=== PATIENT | male | born 1955 | race Caucasian/White ===

== ENCOUNTER → 2017-01-21 | Outpatient (CLI) | payer BC ==
--- NOTE | 2017-01-21 09:23 | RAD ---
Abdomen, 2 views, 01/21/2017: History: Lower abdominal pain, constipation Gas is present in large and small bowel in a nonspecific pattern. There is a moderate amount of stool in the proximal colon. No free air is evident in the abdomen. There is no evidence of organomegaly. No significant abnormal abdominal calcifications are seen. Moderate scattered spurs are present in the spine. IMPRESSION: 1. Increased stool in the right colon. 2. The abdomen is otherwise unremarkable.
== END | disposition home or self-care (01) ==
LOC: DXRADRC 08:54
PROVIDERS: ATTEND Physician Assistant
DX: K59.00 Constipation, unspecified (principal)
CPT/HCPCS: 74020

== ENCOUNTER 2017-03-23 11:03 | Inpatient (IN) | payer BC ==
[~2017-03-23] VITALS: Ht 177.8 cm; Wt 96.3 kg
[2017-03-23 11:54] VITALS: BP 218/97
[2017-03-23] MEDS: guaiFENesin DM 600/30MG 1 TAB TAB.ER.12H PO SCH ×2 (12:18→20:58)
[2017-03-23] MEDS: ACETAMINOPHEN 325 MG TABLET PO PRN ×2 (12:21→20:58)
[2017-03-23] MEDS: NICOTINE 14MG PATCH. TD SCH (12:21)
[2017-03-23] MEDS: IPRATRPIUM/ALBUTEROL 0.5/2.5MG 3 ML NEBU. NEB SCH ×3 (12:45→21:31)
[2017-03-23 12:47] LABS: BASO # 0.1 x10^3/uL (0.0-0.2); BASO % 1 % (0-3); EOS # 0.1 x10^3/uL (0.0-0.7); EOS % 1 % (0-3); HEMATOCRIT 38.2 % (39.0-53.0); HEMOGLOBIN 13.1 g/dL (13.0-17.5); LYMPH # 1.2 x10^3/uL (1.0-4.8); LYMPH % 12 % (24-48); MEAN CORPUSCULAR HEMOGLOBIN 29 pg (25-35); MEAN CORPUSCULAR HGB CONC 34 g/dL (31-37); MEAN CORPUSCULAR VOLUME 84 fL (79-100); MONO # 0.7 x10^3/uL (0.0-1.1); MONO % 7 % (0-9); NEUT # 8.4 x10^3uL (1.8-7.7); NEUT % 80 % (31-73); PLATELET COUNT 146 x10^3/uL (140-400); RED BLOOD COUNT 4.57 x10^6/uL (4.30-5.70); RED CELL DISTRIBUTION WIDTH 14.6 % (11.5-14.5); WHITE BLOOD COUNT 10.5 x10^3/uL (4.0-11.0)
[2017-03-23] MEDS: IV NORMAL SALINE 1,000ML 1,000 ML IV SCH ×3 (12:51→21:00)
[2017-03-23] MEDS ORDERED: IMIQ1CRE17 TP (13:00)
[2017-03-23] MEDS ORDERED: SILD100T PO (13:00)
[2017-03-23] MEDS ORDERED: ALBU18HF IH (13:00)
[2017-03-23] MEDS ORDERED: AZITHROMYCIN 250 MG TABLET. PO SCH (13:00)
[2017-03-23] MEDS ORDERED: HYDR25TA PO (13:00)
[2017-03-23] MEDS ORDERED: CETI10TA16 PO (13:01)
[2017-03-23] MEDS ORDERED: IBUP800T19 PO (13:01)
[2017-03-23] MEDS ORDERED: CRESTOR5 MG PO (13:01)
[2017-03-23 13:04] LABS: ALBUMIN 2.9 g/dL (3.4-5.0); ALBUMIN/GLOBULIN RATIO 0.6 (1.0-1.7); CALCIUM 8.6 mg/dL (8.5-10.1); CREATININE 1.2 mg/dL (0.7-1.3); MAGNESIUM 1.8 mg/dL (1.8-2.4); POTASSIUM 3.9 mmol/L (3.5-5.1); TOTAL BILIRUBIN 0.6 mg/dL (0.2-1.0); TOTAL PROTEIN 7.6 g/dL (6.4-8.2)
[2017-03-23 13:05] VITALS: BP 177/78
[2017-03-23] MEDS ORDERED: ALBUTEROL SULFATE 8GM INHALER. IH PRN (14:15)
[2017-03-23] MEDS: IBUPROFEN 800 MG TABLET. PO PRN ×2 (14:56→23:05)
[2017-03-23] MEDS ORDERED: IV NORMAL SALINE 500ML 500 ML IV ONE (15:00)
[2017-03-23 15:07] VITALS: BP 176/94
[2017-03-23 17:00] VITALS: BP 165/87
--- NOTE | 2017-03-23 18:11 | HP ---
ADMIT DATE: 03/23/2017 REASON FOR ADMISSION: This is a 61-year-old male who was a direct admit from [facility] this morning where he was seeing ____TAZ. He presented to the clinic complaining of fever and myalgia since last 03/18/2017. No chest pain or sputum production, sore throat, nausea, vomiting or diarrhea. Positive for fever up to 103 and progressively struggling to breathe. His fever did break with ibuprofen. 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 PAST MEDICAL HISTORY: Hyperlipidemia, osteoarthritis. PAST SURGICAL HISTORY: Biopsy of the prostate in 1999. PREVIOUS HOSPITALIZATIONS: Denies. FAMILY HISTORY: Mother is alive with hypertension. Father of lung cancer. SOCIAL HABITS: The patient does smoke 10-20 cigarettes a day. 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 Marital Status: He is . He works in construction. MEDICATIONS: Reviewed. He has been out of his Ventolin inhaler. He takes hydroxyzine only when he runs out of GAMEVIL. No longer takes Viagra. He takes Crestor 5 mg at bedtime and been taking ibuprofen 800 mg up to 3 times a day. REVIEW OF SYSTEMS: Positive for myalgias and shortness of breath. OBJECTIVE: VITAL SIGNS: Blood pressure 177/78, temperature taken by me 103, pulse is 120, O2 sat was 94% on room air. HEENT: Face is flushed. Left TM with some bullae on the drum, but no erythema. Right TM is normal. Nose was patent. His throat was clear. Posterior pharynx mildly erythematous, but no exudate. NECK: Supple without adenopathy. LUNGS: Clear to auscultation. He does have a dry cough. CARDIOVASCULAR: Rapid rhythm and rate, but there are few crackles in the right base. ABDOMEN: Soft, nontender has a small abdominal hernia. EXTREMITIES: Without edema. IMAGING: Chest x-ray, which was taken at the clinic shows moderate right middle lobe pneumonia. LABORATORY DATA: Lactic acid was 2.1. Liver function tests were elevated, alkaline phosphatase is also elevated, ___ is elevated. Influenza done at the clinic was negative. Other studies are pending. ASSESSMENT: 1. Right middle lobe pneumonia. 2. Tobacco use disorder. 3. SIRS. 4. Dehydration secondary to prolonged days with fever. 5. Elevated liver function tests, questionable etiology. 6. Recovered alcoholic. PLAN: IV fluids, ibuprofen for fever. IV antibiotics and monitor closely, oxygen if necessary. THONY ATWOOD DO DR: CHAGO/adam JOB#: [id number] / [id number]
[2017-03-23 19:46] VITALS: BP 150/88
[2017-03-23] MEDS: hydrOXYzine HCL 25 MG TABLET PO PRN (20:59)
[2017-03-23] MEDS ORDERED: ATORVASTATIN CALCIUM 20 MG TABLET PO SCH (21:00)
[2017-03-23 23:09] VITALS: BP 169/76
[2017-03-24] VITALS (7 sets, daily range): BP systolic 144–177; BP diastolic 73–89
[2017-03-24] MEDS: ACETAMINOPHEN 325 MG TABLET PO PRN (05:27)
[2017-03-24] MEDS: IPRATRPIUM/ALBUTEROL 0.5/2.5MG 3 ML NEBU. NEB SCH ×3 (05:30→20:33)
[2017-03-24 06:03] LABS: BASO # 0.1 x10^3/uL (0.0-0.2); BASO % 1 % (0-3); EOS # 0.2 x10^3/uL (0.0-0.7); EOS % 1 % (0-3); HEMATOCRIT 38.9 % (39.0-53.0); HEMOGLOBIN 12.9 g/dL (13.0-17.5); LYMPH # 2.1 x10^3/uL (1.0-4.8); LYMPH % 17 % (24-48); MEAN CORPUSCULAR HEMOGLOBIN 29 pg (25-35); MEAN CORPUSCULAR HGB CONC 33 g/dL (31-37); MEAN CORPUSCULAR VOLUME 86 fL (79-100); MONO # 1.4 x10^3/uL (0.0-1.1); MONO % 12 % (0-9); NEUT # 8.2 x10^3uL (1.8-7.7); NEUT % 69 % (31-73); PLATELET COUNT 145 x10^3/uL (140-400); RED BLOOD COUNT 4.55 x10^6/uL (4.30-5.70); RED CELL DISTRIBUTION WIDTH 15.1 % (11.5-14.5); WHITE BLOOD COUNT 11.9 x10^3/uL (4.0-11.0)
[2017-03-24 06:16] LABS: ALBUMIN 2.7 g/dL (3.4-5.0); ALBUMIN/GLOBULIN RATIO 0.6 (1.0-1.7); CALCIUM 8.5 mg/dL (8.5-10.1); CREATININE 1.1 mg/dL (0.7-1.3); GFR 68.5; MAGNESIUM 2.2 mg/dL (1.8-2.4); POTASSIUM 4.1 mmol/L (3.5-5.1); TOTAL BILIRUBIN 0.3 mg/dL (0.2-1.0); TOTAL PROTEIN 7.4 g/dL (6.4-8.2)
[2017-03-24] MEDS: IV NORMAL SALINE 1,000ML 1,000 ML IV SCH ×2 (08:14→20:55)
[2017-03-24] MEDS: NICOTINE 14MG PATCH. TD SCH (08:15)
--- NOTE | 2017-03-24 10:06 | RAD ---
Chest, 2 views, 03/24/2017: History: Pneumonia Comparison is made to yesterday's study. The heart size is normal. There is ongoing dense infiltrate in the right upper lung involving primarily the upper lobe. This obscures the superior aspect of the right hilum. There is a persistent mild linear opacity in the left base. There is an additional tiny nodular opacity projected over the lateral aspect of the left mid lung. No pleural fluid is seen. There is mild spurring in the spine. IMPRESSION: 1. Unchanged dense pulmonary consolidation in the right upper chest again suggesting pneumonia. Underlying neoplasm cannot be excluded. 2. Mild left basilar linear atelectasis or scarring. 3. Possible tiny left mid lung nodule. 4. CT scanning may be useful for further evaluation, if clinically indicated.
[2017-03-24] MEDS: guaiFENesin DM 600/30MG 1 TAB TAB.ER.12H PO SCH ×2 (10:07→20:54)
[2017-03-24] MEDS: CETIRIZINE HCL 10 MG TABLET PO SCH (10:08)
[2017-03-24] MEDS ORDERED: IOHEXOL 300 MG/ML 75 ML VIAL. IV ONE (10:30)
[2017-03-24] MEDS: IBUPROFEN 800 MG TABLET. PO PRN ×2 (10:38→22:01)
[2017-03-24 11:10] LABS: BACTERIA,URINE 0 /HPF (0-FEW); BILIRUBIN,URINE NEG (NEG); CLARITY,URINE HAZY; COLOR,URINE AMBER; GLUCOSE,URINE NEG (NEG); NITRITE,URINE NEG (NEG); SQUAMOUS EPITHELIAL CELL,UR OCC /LPF; UROBILINOGEN,URINE 4 mg/dL (0.2 mg/dL); WBC,URINE 0 /HPF (0-4)
--- NOTE | 2017-03-24 11:26 | RAD ---
Abdominal ultrasound, 03/24/2017: History: Epigastric pain, elevated liver enzymes The gallbladder is within normal limits in size. There is no sonographic evidence of cholelithiasis. The gallbladder wall is at the upper limits of normal in thickness. No bile duct dilatation is evident. The liver is enlarged measuring 21 cm in craniocaudad extent at the level of the right lobe. No hepatic mass is seen. The visualized portions of the pancreas, spleen, aorta and inferior vena cava are unremarkable. There are 2 small subcentimeter cysts in the right kidney. There is a 1.9 cm left renal cyst. The kidneys show no evidence of obstruction. IMPRESSION: 1. Hepatomegaly. 2. Small bilateral renal cysts.
[2017-03-24] MEDS: ENOXAPARIN 40 MG/0.4 ML DISP.SYRIN. SQ SCH (13:08)
--- NOTE | 2017-03-24 13:35 | RAD ---
CT of the chest with contrast, 03/24/2017: History: Cough, pneumonia Multidetector CT imaging was performed following an IV bolus injection of iodinated contrast material. There or extensive airspace opacities in the right upper lobe with underlying air bronchograms. No central bronchial obstructing mass is seen. There is minimal infiltrate centrally in the right middle lobe. There is a small right pleural effusion with mild atelectasis posteriorly in the right lower lobe. A calcified granuloma is present in the right lower lobe. There is mild streaky dependent opacities in the left base suggesting atelectasis/infiltrate. No left-sided pleural fluid is evident. A 9 mm noncalcified pulmonary nodule is present laterally in the left upper lobe. No other definite pulmonary nodules are seen. There is mild calcific plaquing of the thoracic aorta without evidence of aneurysm. The heart is not enlarged. Small mediastinal lymph nodes are seen without definite pathologic enlargement. A calcified lymph node is noted at the right hilum. IMPRESSION: 1. Extensive right upper lobe pulmonary infiltrate compatible with pneumonia. 2. Small right pleural effusion. 3. Minimal left basilar atelectasis/infiltrate. 4. Small noncalcified left upper lobe pulmonary nodule. This could be a primary or secondary neoplasm, or a granuloma. PQRS Compliance Statement: One or more of the following individualized dose reduction techniques were utilized for this examination: 1. Automated exposure control 2. Adjustment of the mA and/or kV according to patient size 3. Use of iterative reconstruction technique
[2017-03-24] MEDS: ALBUTEROL SULFATE 2.5 MG/3 ML NEBU. NEB PRN (15:46)
[2017-03-24] MEDS: hydrOXYzine HCL 25 MG TABLET PO PRN (20:54)
[2017-03-24] MEDS: cloNIDine HCL 0.1 MG TABLET PO PRN (22:00)
--- NOTE | 2017-03-24 23:00 | PN ---
DATE: 03/23/2017 PROBLEMS: 1. Gram positive pneumonia. 2. Sepsis. 3. Tobacco use disorder. 4. Elevated liver function tests. 5. History of IV drug abuse, remote. 6. Recovered alcoholic. 7. Dehydration, resolved. SUBJECTIVE: A 61-year-old male admitted with right upper lobe pneumonia. Gram stain of sputum was positive for gram-positive cocci. He has been on ceftriaxone and Zithromax. He is no worse, but he is definitely not much better. Temperature has come down some and he is maintaining saturations with a couple of liters. OBJECTIVE: VITAL SIGNS: T-max in the last 24 hours was 103, this morning is 100.6, pulse 107, respiratory rate 20-24, blood pressure 164/76 and sat is 96% on 2 liters. GENERAL: Slightly dyspneic with speaking. HEENT: Her eyes are clear. Nose patent. Throat clear. NECK: Supple. LUNGS: With some scattered rhonchi and popping in the right side, clear on the left. CARDIOVASCULAR: Regular rhythm and rate. ABDOMEN: Soft, nontender. EXTREMITIES: Without edema. LABORATORY DATA: CBC: White count slightly more elevated at 11.9. No bands. Urinalysis shows just a small amount of blood. The liver function tests as stated AST, ___ GGT 197, alkaline phosphatase 180. CT of the chest is pending. Abdominal ultrasound shows hepatomegaly. The patient states this is not new. PLAN: Switch to Rocephin, get a hepatitis profile and await the results of the CT of the chest as neoplasm cannot be ruled out. He is doing well on the nicotine patches currently and breathing treatments, IV antibiotics and will go ahead and cover him for DVT prophylaxis as well. THONY ATWOOD DO DR: CHAGO/adam JOB#: [id number] / [id number]
[2017-03-25] MEDS: ALBUTEROL SULFATE 2.5 MG/3 ML NEBU. NEB PRN ×2 (02:27→15:22)
[2017-03-25] MEDS: IV NORMAL SALINE 1,000ML 1,000 ML IV SCH ×3 (04:37→20:43)
[2017-03-25] MEDS: IPRATRPIUM/ALBUTEROL 0.5/2.5MG 3 ML NEBU. NEB SCH ×3 (05:32→20:37)
[2017-03-25 05:45] VITALS: BP 141/81
[2017-03-25 06:45] LABS: BASO # 0.1 x10^3/uL (0.0-0.2); BASO % 1 % (0-3); EOS # 0.3 x10^3/uL (0.0-0.7); EOS % 2 % (0-3); HEMATOCRIT 36.9 % (39.0-53.0); HEMOGLOBIN 12.1 g/dL (13.0-17.5); LYMPH % 15 % (24-48); MEAN CORPUSCULAR HEMOGLOBIN 28 pg (25-35); MEAN CORPUSCULAR HGB CONC 33 g/dL (31-37); MEAN CORPUSCULAR VOLUME 85 fL (79-100); MONO # 1.5 x10^3/uL (0.0-1.1); MONO % 11 % (0-9); NEUT # 9.3 x10^3uL (1.8-7.7); NEUT % 71 % (31-73); PLATELET COUNT 167 x10^3/uL (140-400); RED BLOOD COUNT 4.32 x10^6/uL (4.30-5.70); WHITE BLOOD COUNT 13.1 x10^3/uL (4.0-11.0)
[2017-03-25 06:51] LABS: ALBUMIN 2.6 g/dL (3.4-5.0); ALBUMIN/GLOBULIN RATIO 0.5 (1.0-1.7); CALCIUM 8.8 mg/dL (8.5-10.1); GFR 76.5; MAGNESIUM 1.9 mg/dL (1.8-2.4); POTASSIUM 4.1 mmol/L (3.5-5.1); TOTAL BILIRUBIN 0.5 mg/dL (0.2-1.0); TOTAL PROTEIN 7.5 g/dL (6.4-8.2)
--- NOTE | 2017-03-25 07:31 | ACF ---
Admit Criteria Forms Admit Criteria Forms Admit Criteria Forms PNEUMONIA, COMMUNITY ACQUIRED Clinical Indications for Admission to Inpatient Care (Place 'X' for any and all applicable criteria): Admission to inpatient status for two midnights or more is indicated for ANY ONE of the following (1)(2)(3): [ ]I. Hypoxia [ ]II. Hemodynamic instability [ ]III. Altered mental status that is severe or persistent [ ]IV. Dehydration that is severe or persistent. [ ]V. Bacteremia [ ]. Moderate-risk or high-risk category patients (Pneumonia Severity Index ( PSI) class IV or V, or CURB-65 score of 3 or greater). [ ]VII. Intermediate-risk category patients (e.g., PSI class III or CURB-65 score 2) who do not improve with outpatient and observation care treatment [ ]VIII. Outpatient treatment failure as indicated by 1 or more of the following(9): [ ]a) Failure to respond to antibiotic (eg, resistant organism) [ ]b) Clinically significant adverse effects from medication (eg, vomiting) [ ]c) Complications of pneumonia (eg, empyema, bacteremia) [ ]d) Significant worsening of comorbid cond necessitating inpatient care (eg, chronic heart failure) [X]IX. Appropriate diagnostic testing and treatment unavailable in outpatient or recovery facility (eg, testing or infection control measures unavailable) [ ]X. Respiratory finding (eg. tachypnea) that do not respond to outpatient observation care treatment [ ]XI. Complicated pleural effusions (eg, emphysema, exudative, loculated) [ ]XII. Immunocompromised patients (e.g., AIDS, chronic steroid use) at moderate or high risk based on clinical evaluation. Extended stay beyond goal length of stay may be needed for (20) [ ]a) Unclear diagnosis [ ]b) Pleural disease [ ]c) Severe pneumonia or treatment failure [ ]d) Respiratory failure [ ]e) New onset hyponatremia (serum Na concentration less than 135 mEq/L(mmol/ L) [ ]f) Clinically significant comorbid illness (eg, heart failure, atrial fibrillation with rapid heart rate, alcohol withdrawal, renal insufficiency)(34)(35) [ ]g) Comorbid acute exacerbation of COPD(36) [ ]h) Concomitant diagnosis of malignancy [ ]i) Concomitant altered mental status [ ]j) Culture-identified Gram-negative or antibiotic-resistant organism (eg, Pseudomonas, methicillin-resistant Staphylococcus aureus MRSA)(30) [ ]k) Healthcare-associated pneumonia (36) The original [facility] [employer] content created by [facility] has been revised. The portions of the content which have been revised are identified through the use of italic text, and [facility] has neither reviewed nor approved the modified material. All other unmodified content is copyright [facility]. Please see references footnoted in the original [facility] [employer] edition 2014 BROOKE HORTON Mar 25, 2017 07:31
[2017-03-25] MEDS ORDERED: PIP/TAZO PER PHARMACY MC PRN (07:45)
[2017-03-25] MEDS ORDERED: VANCOMYCIN 2 GM in IV NORMAL SALINE 500ML 500 ML IV ONE (09:00)
[2017-03-25] MEDS: guaiFENesin DM 600/30MG 1 TAB TAB.ER.12H PO SCH ×2 (09:15→20:43)
[2017-03-25] MEDS: VANCOMYCIN PER PHARMACY MC PRN ×2 (09:15→10:54)
[2017-03-25] MEDS: ASCORBIC ACID 500 MG TABLET PO SCH (09:16)
[2017-03-25] MEDS: CETIRIZINE HCL 10 MG TABLET PO SCH (09:19)
[2017-03-25] MEDS: NICOTINE 14MG PATCH. TD SCH (09:19)
[2017-03-25] MEDS: ENOXAPARIN 40 MG/0.4 ML DISP.SYRIN. SQ SCH (09:22)
[2017-03-25] MEDS: methylPREDNISolone SOD SUCC PF 125 MG/2 ML VIAL. IV SCH ×3 (09:23→20:44)
--- NOTE | 2017-03-25 10:14 | RAD ---
Chest, 2 views, 03/25/2017: History: Pneumonia Comparison is made to a study from 03/24/2017. The heart size is normal. There are ongoing extensive right lung infiltrates with dominant involvement of the right upper lobe. These have worsened slightly since 03/23/2017 with increasing infrahilar infiltrate. A small amount of right-sided pleural fluid is now evident. There is minimal unchanged streaky atelectasis/infiltrate in the left base. The patient's known small left upper lobe pulmonary nodule is not clearly defined on the current study. IMPRESSION: Slight worsening of the extensive right lung infiltrates again most compatible with pneumonia, with a small amount of associated right-sided pleural fluid.
[2017-03-25 10:30] VITALS: BP 167/80
[2017-03-25] MEDS: PIPERACILLIN/TAZOBACTAM 3.375 GM in IV NORMAL SALINE 50ML 50 ML IV SCH ×3 (13:29→23:36)
[2017-03-25 15:10] VITALS: BP 172/90
[2017-03-25 17:15] LABS: HCV ANTIBODY >11.0 s/co ratio (0.0-0.9); HEP A IGM ABDY Negative (Negative)
[2017-03-25 19:18] VITALS: BP 178/86
[2017-03-25] MEDS: cloNIDine HCL 0.1 MG TABLET PO PRN (20:43)
[2017-03-25] MEDS: hydrOXYzine HCL 25 MG TABLET PO PRN (20:43)
[2017-03-25] MEDS: VANCOMYCIN 1.5 GM in IV NORMAL SALINE 500ML 500 ML IV SCH (20:44)
[2017-03-25 23:20] VITALS: BP 147/81
--- NOTE | 2017-03-25 23:44 | PN ---
DATE: 03/25/2017 PROBLEMS: 1. Right upper and middle lobe pneumonia. 2. Sepsis secondary to pneumonia. 3. Acute respiratory failure secondary to pneumonia. 4. Tobacco use disorder. 5. Transaminitis, questionable etiology, may be due to pneumonia versus old history of IV drug abuse. 6. Recovered alcoholic. 7. Dehydration, resolved, not doing much better today. It is not that he is worse, but just not better. IV antibiotics have been switched up a little to Zosyn and vancomycin and he is requiring a couple of liters of oxygen, but no increase in his oxygen requirements. He has been up and ambulating a little bit. OBJECTIVE: VITAL SIGNS: Pulse 110, temperature 99.7, blood pressure 167/80, pulse ox 96% on 2 liters. Face still flushed. HEENT: Throat was clear. LUNGS: A little bit of popping heard on the right side with a little bit of rhonchi, left side clear. CARDIOVASCULAR: Regular rhythm and rate. Mildly tachycardic. EXTREMITIES: Without edema. LABORATORY DATA: White blood cell count up slightly to 13.1. Chemistry, he still has transaminitis. Hepatitis profile is pending. Urine had slight amount of blood in it. His strep pneumonia antigen was negative and legionella also negative. PLAN: I added some Solu-Medrol today. Discussed with Dr. Celis. Continuing with Zosyn and vancomycin, and smoking cessation, and we will continue to monitor closely. THONY ATWOOD DO DR: CHAGO/adam JOB#: [id number] / [id number]
[2017-03-26] VITALS (7 sets, daily range): BP systolic 138–185; BP diastolic 69–96
[2017-03-26] MEDS: IPRATRPIUM/ALBUTEROL 0.5/2.5MG 3 ML NEBU. NEB SCH ×3 (03:49→20:35)
[2017-03-26] MEDS: methylPREDNISolone SOD SUCC PF 125 MG/2 ML VIAL. IV SCH ×3 (05:33→20:47)
[2017-03-26] MEDS: PIPERACILLIN/TAZOBACTAM 3.375 GM in IV NORMAL SALINE 50ML 50 ML IV SCH ×4 (05:33→23:09)
[2017-03-26] MEDS: IV NORMAL SALINE 1,000ML 1,000 ML IV SCH ×2 (05:33→12:15)
[2017-03-26 06:19] LABS: BASO % 0 % (0-3); EOS % 0 % (0-3); HEMATOCRIT 32.7 % (39.0-53.0); HEMOGLOBIN 11.1 g/dL (13.0-17.5); LYMPH # 1.2 x10^3/uL (1.0-4.8); LYMPH % 10 % (24-48); MEAN CORPUSCULAR HEMOGLOBIN 29 pg (25-35); MEAN CORPUSCULAR HGB CONC 34 g/dL (31-37); MEAN CORPUSCULAR VOLUME 85 fL (79-100); MONO # 0.8 x10^3/uL (0.0-1.1); MONO % 7 % (0-9); NEUT # 10.2 x10^3uL (1.8-7.7); NEUT % 84 % (31-73); PLATELET COUNT 199 x10^3/uL (140-400); RED BLOOD COUNT 3.87 x10^6/uL (4.30-5.70); RED CELL DISTRIBUTION WIDTH 15.4 % (11.5-14.5); WHITE BLOOD COUNT 12.2 x10^3/uL (4.0-11.0)
[2017-03-26 06:29] LABS: ALBUMIN 2.4 g/dL (3.4-5.0); ALBUMIN/GLOBULIN RATIO 0.5 (1.0-1.7); CALCIUM 8.8 mg/dL (8.5-10.1); GFR 76.5; MAGNESIUM 2.1 mg/dL (1.8-2.4); POTASSIUM 3.7 mmol/L (3.5-5.1); TOTAL BILIRUBIN 0.3 mg/dL (0.2-1.0)
[2017-03-26] MEDS: ENOXAPARIN 40 MG/0.4 ML DISP.SYRIN. SQ SCH (08:13)
[2017-03-26] MEDS: VANCOMYCIN 1.5 GM in IV NORMAL SALINE 500ML 500 ML IV SCH ×2 (08:13→20:47)
[2017-03-26] MEDS: guaiFENesin DM 600/30MG 1 TAB TAB.ER.12H PO SCH ×2 (08:14→20:46)
[2017-03-26] MEDS: NICOTINE 14MG PATCH. TD SCH (08:14)
[2017-03-26] MEDS: ASCORBIC ACID 500 MG TABLET PO SCH (08:14)
[2017-03-26] MEDS: CETIRIZINE HCL 10 MG TABLET PO SCH (08:14)
[2017-03-26] MEDS: ALBUTEROL SULFATE 2.5 MG/3 ML NEBU. NEB PRN (15:22)
--- NOTE | 2017-03-26 15:46 | PDOC ---
SUBJECTIVE: DOING MUCH BETTER TODAY. BREATHING MUCH BETTER. NOT SHORT OF BREATH. STILL COUGHING UP SOME BLOOD TINGED SPUTUM. DOING OK OFF THE CIGARETTES. STILL REQUIRING SOME OXYGEN. OBJECTIVE: Problems: . Right upper and middle lobe pneumonia. 2. Sepsis secondary to pneumonia. 3. Acute respiratory failure secondary to pneumonia. 4. Tobacco use disorder. 5. Transaminitis, questionable etiology, may be due to pneumonia versus old history of IV drug abuse. 6. Recovered alcoholic. 7. Dehydration, resolved 8. POSITIVE HEPATITIS C Vital Signs: Vital Signs Date Time Temp Pulse Resp B/P (MAP) Pulse Ox O2 Delivery O2 Flow Rate FiO2 03/26/17 15:22 97 Nasal Cannula 2.0 03/26/17 15:08 98.1 93 20 178/93 (121) I & O Intake and Output 03/27/17 07:00 Intake Total 360 ml Balance 360 ml Intake Oral 360 ml Labs: Laboratory Tests Test 03/25/17 06:05 03/26/17 05:46 White Blood Count 13.1 x10^3/uL (4.0-11.0) 12.2 x10^3/uL (4.0-11.0) Red Blood Count 4.32 x10^6/uL (4.30-5.70) 3.87 x10^6/uL (4.30-5.70) Hemoglobin 12.1 g/dL (13.0-17.5) 11.1 g/dL (13.0-17.5) Hematocrit 36.9 % (39.0-53.0) 32.7 % (39.0-53.0) Mean Corpuscular Volume 85 fL (79-100) 85 fL (79-100) Mean Corpuscular Hemoglobin 28 pg (25-35) 29 pg (25-35) Mean Corpuscular Hemoglobin Concent 33 g/dL (31-37) 34 g/dL (31-37) Red Cell Distribution Width 15.0 % (11.5-14.5) 15.4 % (11.5-14.5) Platelet Count 167 x10^3/uL (140-400) 199 x10^3/uL (140-400) Neutrophils (%) (Auto) 71 % (31-73) 84 % (31-73) Lymphocytes (%) (Auto) 15 % (24-48) 10 % (24-48) Monocytes (%) (Auto) 11 % (0-9) 7 % (0-9) Eosinophils (%) (Auto) 2 % (0-3) 0 % (0-3) Basophils (%) (Auto) 1 % (0-3) 0 % (0-3) Neutrophils # (Auto) 9.3 x10^3uL (1.8-7.7) 10.2 x10^3uL (1.8-7.7) Lymphocytes # (Auto) 2.0 x10^3/uL (1.0-4.8) 1.2 x10^3/uL (1.0-4.8) Monocytes # (Auto) 1.5 x10^3/uL (0.0-1.1) 0.8 x10^3/uL (0.0-1.1) Eosinophils # (Auto) 0.3 x10^3/uL (0.0-0.7) 0.0 x10^3/uL (0.0-0.7) Basophils # (Auto) 0.1 x10^3/uL (0.0-0.2) 0.0 x10^3/uL (0.0-0.2) Sodium Level 139 mmol/L (136-145) 139 mmol/L (136-145) Potassium Level 4.1 mmol/L (3.5-5.1) 3.7 mmol/L (3.5-5.1) Chloride Level 104 mmol/L (98-107) 106 mmol/L (98-107) Carbon Dioxide Level 27 mmol/L (21-32) 26 mmol/L (21-32) Anion Gap 8 (6-14) 7 (6-14) Blood Urea Nitrogen 10 mg/dL (8-26) 16 mg/dL (8-26) Creatinine 1.0 mg/dL (0.7-1.3) 1.0 mg/dL (0.7-1.3) Estimated GFR (Cockcroft-Gault) 76.5 76.5 BUN/Creatinine Ratio 10 (6-20) 16 (6-20) Glucose Level 121 mg/dL (70-99) 270 mg/dL (70-99) Calcium Level 8.8 mg/dL (8.5-10.1) 8.8 mg/dL (8.5-10.1) Magnesium Level 1.9 mg/dL (1.8-2.4) 2.1 mg/dL (1.8-2.4) Total Bilirubin 0.5 mg/dL (0.2-1.0) 0.3 mg/dL (0.2-1.0) Aspartate Amino Transf (AST/SGOT) 109 U/L (15-37) 83 U/L (15-37) Alanine Aminotransferase (ALT/SGPT) 186 U/L (16-63) 199 U/L (16-63) Alkaline Phosphatase 234 U/L (46-116) 231 U/L (46-116) Total Protein 7.5 g/dL (6.4-8.2) 7.0 g/dL (6.4-8.2) Albumin 2.6 g/dL (3.4-5.0) 2.4 g/dL (3.4-5.0) Albumin/Globulin Ratio 0.5 (1.0-1.7) 0.5 (1.0-1.7) Physical Exam: 24 HOUR TMAX 99.7 FACE FLUSHED, THROAT CLEAR, LUNGS WITH SOME RHONI AND POPPING OVER THE RIGHT LUNG AREA, CVRRR, EXT. WITHOUT EDEMA ASSESSMENT: ABOVE PLAN: DISCUSSED THE FINDINGS OF HEPATITIS C AND HE WILL NEED TO SEE A DATA COMMUNICATIONS TECHNICIAN FOR FURTHER WORK-UP. HE DID IV DRUGS FOR MANY YEARS AND THIS IS THE LIKELY SOURCE OF THE HEPATITIS. CONTINUE ANTIBIOTICS , CUT DOWN THE STEROIDS AND START TO PLAN FOR DISCHARGE. THONY ATWOOD DO Mar 26, 2017 15:46
[2017-03-26] MEDS ORDERED: cloNIDine HCL 0.1 MG TABLET PO ONE (15:50)
[2017-03-26] MEDS: CALCIUM CARBONATE 500 MG TAB.CHEW PO PRN ×2 (15:55→21:35)
[2017-03-26 20:38] LABS: VANC TR 8.8 mcg/mL (10.0-20.0)
[2017-03-26] MEDS: cloNIDine HCL 0.1 MG TABLET PO PRN ×2 (20:46→23:09)
[2017-03-26] MEDS: VANCOMYCIN PER PHARMACY MC PRN (22:02)
[2017-03-26] MEDS: hydrOXYzine HCL 25 MG TABLET PO PRN (23:09)
[2017-03-27] VITALS (8 sets, daily range): BP systolic 155–184; BP diastolic 84–101
[2017-03-27] MEDS: ALBUTEROL SULFATE 2.5 MG/3 ML NEBU. NEB PRN ×2 (02:26→16:20)
[2017-03-27] MEDS: VANCOMYCIN 1.5 GM in IV NORMAL SALINE 500ML 500 ML IV SCH ×4 (04:30→21:46)
[2017-03-27] MEDS: IPRATRPIUM/ALBUTEROL 0.5/2.5MG 3 ML NEBU. NEB SCH ×3 (05:10→19:59)
[2017-03-27] MEDS ORDERED: PNEUMOCOCCAL VAX SCREEN. MC PRN (05:15)
[2017-03-27 06:11] LABS: BASO % 0 % (0-3); EOS % 0 % (0-3); HEMATOCRIT 31.5 % (39.0-53.0); HEMOGLOBIN 10.8 g/dL (13.0-17.5); LYMPH # 1.5 x10^3/uL (1.0-4.8); LYMPH % 10 % (24-48); MEAN CORPUSCULAR HEMOGLOBIN 29 pg (25-35); MEAN CORPUSCULAR HGB CONC 34 g/dL (31-37); MEAN CORPUSCULAR VOLUME 84 fL (79-100); MONO # 1.2 x10^3/uL (0.0-1.1); MONO % 8 % (0-9); NEUT # 12.8 x10^3uL (1.8-7.7); NEUT % 82 % (31-73); PLATELET COUNT 247 x10^3/uL (140-400); RED BLOOD COUNT 3.77 x10^6/uL (4.30-5.70); RED CELL DISTRIBUTION WIDTH 15.6 % (11.5-14.5); WHITE BLOOD COUNT 15.6 x10^3/uL (4.0-11.0)
[2017-03-27 06:15] LABS: ALBUMIN 2.3 g/dL (3.4-5.0); ALBUMIN/GLOBULIN RATIO 0.5 (1.0-1.7); CALCIUM 8.8 mg/dL (8.5-10.1); GFR 76.5; MAGNESIUM 2.2 mg/dL (1.8-2.4); TOTAL BILIRUBIN 0.3 mg/dL (0.2-1.0); TOTAL PROTEIN 6.5 g/dL (6.4-8.2)
[2017-03-27] MEDS: PIPERACILLIN/TAZOBACTAM 3.375 GM in IV NORMAL SALINE 50ML 50 ML IV SCH ×3 (06:23→18:23)
[2017-03-27 07:33] LABS: % BANDS 1 % (0-9); % LYMPHS 9 % (24-48); % MONOS 7 % (0-10); % SEGS 83 % (35-66)
[2017-03-27 07:34] LABS: PLT ESTIMATE ADEQUATE (ADEQUATE)
[2017-03-27 07:35] LABS: POLYCHROMASIA SLIGHT
[2017-03-27 07:36] LABS: OVALOCYTES OCC; TOXIC GRANULATION SLIGHT
[2017-03-27] MEDS: ENOXAPARIN 40 MG/0.4 ML DISP.SYRIN. SQ SCH (08:12)
[2017-03-27] MEDS: ASCORBIC ACID 500 MG TABLET PO SCH (08:13)
[2017-03-27] MEDS: guaiFENesin DM 600/30MG 1 TAB TAB.ER.12H PO SCH ×2 (08:13→21:43)
[2017-03-27] MEDS: methylPREDNISolone SOD SUCC PF 125 MG/2 ML VIAL. IV SCH (08:13)
[2017-03-27] MEDS: CETIRIZINE HCL 10 MG TABLET PO SCH (08:13)
[2017-03-27] MEDS: NICOTINE 14MG PATCH. TD SCH (08:14)
[2017-03-27] MEDS ORDERED: DEXTROSE 50% 25 GM / 50ML DISP.SYRIN. IV PRN (08:15)
[2017-03-27] MEDS: INSULIN ASPART 300 UNITS/3 ML INSULN.PEN SQ SCH ×4 (08:57→21:54)
[2017-03-27] MEDS ORDERED: PNEUMOC CONJ VACC 23-VALENT 0.5 ML VIAL. VAX IM ONE (09:00)
[2017-03-27] MEDS ORDERED: cloNIDine TTS-1 1 PATCH PATCH TD SCH (09:00)
[2017-03-27] MEDS: CALCIUM CARBONATE 500 MG TAB.CHEW PO PRN ×2 (13:15→18:20)
[2017-03-27] MEDS ORDERED: LINE600T PO (13:20)
[2017-03-27] MEDS ORDERED: ALBU8.5H8 INH (13:20)
[2017-03-27] MEDS ORDERED: FLUT1DIS3 IH (13:20)
[2017-03-27] MEDS ORDERED: AMOX1TAB61 PO (13:20)
[2017-03-27] MEDS: cloNIDine HCL 0.1 MG TABLET PO PRN ×2 (14:22→15:44)
[2017-03-27] MEDS: hydrALAZINE 25 MG TABLET PO PRN (17:12)
--- NOTE | 2017-03-27 23:17 | PN ---
DATE: 03/23/2017 PROBLEMS: 1. Right upper and middle lobe pneumonia. 2. Sepsis secondary to pneumonia. 3. Acute hypoxic respiratory failure secondary to pneumonia. 4. Tobacco use disorder. 5. Transaminitis most likely due to positive hepatitis C status. 6. Recovered alcoholic. 7. Recovered IV drug abuse. 8. Dehydration, resolved. 9. Elevated blood pressure. 10. Hyperglycemia. 11. Rule out previous diagnosis of diabetes secondary to steroids. 12. Left lung nodule. SUBJECTIVE: Subjective, he is doing much better. His blood-tinged sputum is clear with slight streak of blood. He is not short of breath. He is wheezing a little bit more today, but overall feels better. Answered a lot of his questions regarding things he needs to have done as an outpatient such as being seen by motorboat mechanic helper. OBJECTIVE: VITAL SIGNS: Blood pressure 175/92, pulse 83, temperature 97.8, respirations 20, and pulse ox 96% on 2 liters. HEENT: Face is flushed. His throat was clear. LUNGS: He does have some diffuse wheezes inspiratory and expiratory, but is moving his air better and much better air movement on the right side. CARDIOVASCULAR: Regular rhythm and rate. EXTREMITIES: Without edema. LABORATORY DATA: Glucose is in the 200s and 300s. May still has transaminitis. Albumin is 2.9 on admission and now it is 2.3. PLAN: We are working toward discharge. He is doing a lot better. I discussed this case with Dr. Celis and all of the things he needs to have followed up on. We will adjust his steroids and started him on a clonidine patch for his blood pressure today. THONY ATWOOD DO DR: CHAGO/adam JOB#: [id number] / [id number]
[2017-03-28] VITALS (7 sets, daily range): BP systolic 165–190; BP diastolic 83–98
[2017-03-28] MEDS: PIPERACILLIN/TAZOBACTAM 3.375 GM in IV NORMAL SALINE 50ML 50 ML IV SCH ×5 (00:04→23:28)
[2017-03-28 01:06] LABS: HEMOGLOBIN A1C 5.9 % (4.8-5.6)
[2017-03-28] MEDS: ALBUTEROL SULFATE 2.5 MG/3 ML NEBU. NEB PRN (01:58)
[2017-03-28 04:49] LABS: BASO % 0 % (0-3); EOS # 0.1 x10^3/uL (0.0-0.7); EOS % 1 % (0-3); HEMATOCRIT 34.8 % (39.0-53.0); HEMOGLOBIN 11.7 g/dL (13.0-17.5); LYMPH # 4.6 x10^3/uL (1.0-4.8); LYMPH % 27 % (24-48); MEAN CORPUSCULAR HEMOGLOBIN 29 pg (25-35); MEAN CORPUSCULAR HGB CONC 34 g/dL (31-37); MEAN CORPUSCULAR VOLUME 85 fL (79-100); MONO # 1.3 x10^3/uL (0.0-1.1); MONO % 8 % (0-9); NEUT % 65 % (31-73); PLATELET COUNT 286 x10^3/uL (140-400); RED BLOOD COUNT 4.11 x10^6/uL (4.30-5.70); RED CELL DISTRIBUTION WIDTH 15.4 % (11.5-14.5)
[2017-03-28 04:58] LABS: VANC TR 23.2 mcg/mL (10.0-20.0)
[2017-03-28 05:05] LABS: ALBUMIN 2.5 g/dL (3.4-5.0); ALBUMIN/GLOBULIN RATIO 0.7 (1.0-1.7); TOTAL PROTEIN 5.9 g/dL (6.4-8.2)
[2017-03-28 05:06] LABS: CALCIUM 8.3 mg/dL (8.5-10.1); CREATININE 1.1 mg/dL (0.7-1.3); GFR 68.5; POTASSIUM 3.7 mmol/L (3.5-5.1); TOTAL BILIRUBIN 0.4 mg/dL (0.2-1.0)
[2017-03-28] MEDS: IPRATRPIUM/ALBUTEROL 0.5/2.5MG 3 ML NEBU. NEB SCH ×3 (05:13→20:15)
[2017-03-28] MEDS: VANCOMYCIN PER PHARMACY MC PRN (05:50)
[2017-03-28] MEDS: INSULIN ASPART 300 UNITS/3 ML INSULN.PEN SQ SCH ×4 (07:30→20:35)
[2017-03-28] MEDS: ENOXAPARIN 40 MG/0.4 ML DISP.SYRIN. SQ SCH (07:59)
[2017-03-28] MEDS: ASCORBIC ACID 500 MG TABLET PO SCH (07:59)
[2017-03-28] MEDS: NICOTINE 14MG PATCH. TD SCH (08:00)
[2017-03-28] MEDS: CETIRIZINE HCL 10 MG TABLET PO SCH (08:00)
[2017-03-28] MEDS ORDERED: methylPREDNISolone SOD SUCC PF 40 MG/ML VIAL. IV SCH ×2 (08:00)
[2017-03-28] MEDS: guaiFENesin DM 600/30MG 1 TAB TAB.ER.12H PO SCH ×2 (08:00→20:12)
[2017-03-28] MEDS: amLODIPine BESYLATE 10 MG TABLET PO SCH (08:50)
[2017-03-28] MEDS: hydrALAZINE 25 MG TABLET PO PRN (09:59)
[2017-03-28] MEDS ORDERED: FUROSEMIDE 20 MG/2 ML VIAL IVP ONE (11:00)
--- NOTE | 2017-03-28 12:21 | RAD ---
Chest, 2 views, 03/28/2017: History: Cough, shortness of breath, pneumonia Comparison is made to a study from 03/25/2017. The heart size is normal. The pulmonary vascularity as best seen on the left is within normal limits. Right lung infiltrates have partially cleared. There is an increasing streaky opacity in the left base partially obscuring the hemidiaphragm. There is blunting of the costophrenic angles bilaterally compatible with a small amount of pleural fluid. There is no evidence of pneumothorax. IMPRESSION: 1. Improving right pulmonary infiltrates. 2. A small amount of bilateral pleural fluid is now evident. 3. Worsening mild left basilar atelectasis/infiltrate.
[2017-03-28] MEDS: VANCOMYCIN 1.25 GM in IV NORMAL SALINE 250ML 250 ML IV SCH ×2 (13:56→20:12)
[2017-03-28] MEDS: CALCIUM CARBONATE 500 MG TAB.CHEW PO PRN (14:02)
--- NOTE | 2017-03-28 16:02 | PDOC ---
SUBJECTIVE: DOING MUCH BETTER, OFF OXYGEN NOW, BREATHING BETTER. BUT NOW HAVING PROBLEMS WITH HIS BLOOD PRESSURE. HE HAS GAINED SEVERAL POUNDS FROM ALL THE IV FLUID. OBJECTIVE: Problems: PROBLEMS: 1. Right upper and middle lobe pneumonia. 2. Sepsis secondary to pneumonia. 3. Acute hypoxic respiratory failure secondary to pneumonia. 4. Tobacco use disorder. 5. Transaminitis most likely due to positive hepatitis C status. 6. Recovered alcoholic. 7. Recovered IV drug abuse. 8. Dehydration, resolved. 9. Elevated blood pressure. 10. Hyperglycemia.SECONDARY TO STEROIDS 11. Rule out previous diagnosis of diabetes secondary to steroids. 12. Left lung nodule. Resting comfortably on the side of the bed, no tachypnea noted. Face is kishan,NOSE patent, throat clear Lungs are clear to auscultation inspiratory and expiratory, cardiovascular regular rhythm and rate, abdomen soft nontender extremities with 1+ edema Vital Signs: Vital Signs Date Time Temp Pulse Resp B/P (MAP) Pulse Ox O2 Delivery O2 Flow Rate FiO2 03/28/17 15:07 97.8 84 18 168/93 (118) 93 Room Air 03/28/17 02:00 1.0 I & O Intake and Output 03/29/17 07:00 Intake Total 1850 ml Balance 1850 ml Intake Oral 1800 ml IV Total 50 ml # Voids 4 # Bowel Movements 1 Labs: Laboratory Tests Test 03/26/17 20:15 03/27/17 05:45 03/27/17 08:12 03/27/17 11:18 Vancomycin Level Trough 8.8 mcg/mL (10.0-20.0) Vancomycin Last Dose Date apr 04 Vancomycin Last Dose Time 0900 White Blood Count 15.6 x10^3/uL (4.0-11.0) Red Blood Count 3.77 x10^6/uL (4.30-5.70) Hemoglobin 10.8 g/dL (13.0-17.5) Hematocrit 31.5 % (39.0-53.0) Mean Corpuscular Volume 84 fL (79-100) Mean Corpuscular Hemoglobin 29 pg (25-35) Mean Corpuscular Hemoglobin Concent 34 g/dL (31-37) Red Cell Distribution Width 15.6 % (11.5-14.5) Platelet Count 247 x10^3/uL (140-400) Neutrophils (%) (Auto) 82 % (31-73) Lymphocytes (%) (Auto) 10 % (24-48) Monocytes (%) (Auto) 8 % (0-9) Eosinophils (%) (Auto) 0 % (0-3) Basophils (%) (Auto) 0 % (0-3) Neutrophils # (Auto) 12.8 x10^3uL (1.8-7.7) Lymphocytes # (Auto) 1.5 x10^3/uL (1.0-4.8) Monocytes # (Auto) 1.2 x10^3/uL (0.0-1.1) Eosinophils # (Auto) 0.0 x10^3/uL (0.0-0.7) Basophils # (Auto) 0.0 x10^3/uL (0.0-0.2) Segmented Neutrophils % 83 % (35-66) Band Neutrophils % 1 % (0-9) Lymphocytes % 9 % (24-48) Monocytes % 7 % (0-10) Toxic Granulation Slight Dohle Bodies Present Platelet Estimate Adequate (ADEQUATE) Large Platelets Occ Giant Platelets Occ Polychromasia Slight Ovalocytes Occ Sodium Level 138 mmol/L (136-145) Potassium Level 4.0 mmol/L (3.5-5.1) Chloride Level 106 mmol/L (98-107) Carbon Dioxide Level 27 mmol/L (21-32) Anion Gap 5 (6-14) Blood Urea Nitrogen 18 mg/dL (8-26) Creatinine 1.0 mg/dL (0.7-1.3) Estimated GFR (Cockcroft-Gault) 76.5 BUN/Creatinine Ratio 18 (6-20) Glucose Level 308 mg/dL (70-99) Hemoglobin A1c 5.9 % (4.8-5.6) Calcium Level 8.8 mg/dL (8.5-10.1) Magnesium Level 2.2 mg/dL (1.8-2.4) Total Bilirubin 0.3 mg/dL (0.2-1.0) Aspartate Amino Transf (AST/SGOT) 82 U/L (15-37) Alanine Aminotransferase (ALT/SGPT) 251 U/L (16-63) Alkaline Phosphatase 216 U/L (46-116) Total Protein 6.5 g/dL (6.4-8.2) Albumin 2.3 g/dL (3.4-5.0) Albumin/Globulin Ratio 0.5 (1.0-1.7) Glucose (Fingerstick) 248 mg/dL (70-99) 231 mg/dL (70-99) Test 03/27/17 16:28 03/27/17 21:42 03/28/17 04:35 03/28/17 07:36 Glucose (Fingerstick) 307 mg/dL (70-99) 267 mg/dL (70-99) 101 mg/dL (70-99) White Blood Count 17.0 x10^3/uL (4.0-11.0) Red Blood Count 4.11 x10^6/uL (4.30-5.70) Hemoglobin 11.7 g/dL (13.0-17.5) Hematocrit 34.8 % (39.0-53.0) Mean Corpuscular Volume 85 fL (79-100) Mean Corpuscular Hemoglobin 29 pg (25-35) Mean Corpuscular Hemoglobin Concent 34 g/dL (31-37) Red Cell Distribution Width 15.4 % (11.5-14.5) Platelet Count 286 x10^3/uL (140-400) Neutrophils (%) (Auto) 65 % (31-73) Lymphocytes (%) (Auto) 27 % (24-48) Monocytes (%) (Auto) 8 % (0-9) Eosinophils (%) (Auto) 1 % (0-3) Basophils (%) (Auto) 0 % (0-3) Neutrophils # (Auto) 11.0 x10^3uL (1.8-7.7) Lymphocytes # (Auto) 4.6 x10^3/uL (1.0-4.8) Monocytes # (Auto) 1.3 x10^3/uL (0.0-1.1) Eosinophils # (Auto) 0.1 x10^3/uL (0.0-0.7) Basophils # (Auto) 0.0 x10^3/uL (0.0-0.2) Sodium Level 145 mmol/L (136-145) Potassium Level 3.7 mmol/L (3.5-5.1) Chloride Level 108 mmol/L (98-107) Carbon Dioxide Level 32 mmol/L (21-32) Anion Gap 5 (6-14) Blood Urea Nitrogen 18 mg/dL (8-26) Creatinine 1.1 mg/dL (0.7-1.3) Estimated GFR (Cockcroft-Gault) 68.5 BUN/Creatinine Ratio 16 (6-20) Glucose Level 107 mg/dL (70-99) Calcium Level 8.3 mg/dL (8.5-10.1) Magnesium Level 2.0 mg/dL (1.8-2.4) Total Bilirubin 0.4 mg/dL (0.2-1.0) Aspartate Amino Transf (AST/SGOT) 82 U/L (15-37) Alanine Aminotransferase (ALT/SGPT) 277 U/L (16-63) Alkaline Phosphatase 214 U/L (46-116) Total Protein 5.9 g/dL (6.4-8.2) Albumin 2.5 g/dL (3.4-5.0) Albumin/Globulin Ratio 0.7 (1.0-1.7) Vancomycin Level Trough 23.2 mcg/mL (10.0-20.0) Vancomycin Last Dose Date 03/27/17 Vancomycin Last Dose Time 2100 Test 03/28/17 11:11 Glucose (Fingerstick) 167 mg/dL (70-99) Physical Exam: C objective ASSESSMENT: Right upper and middle lobe pneumonia. 2. Sepsis secondary to pneumonia. 3. Acute hypoxic respiratory failure secondary to pneumonia. 4. Tobacco use disorder. 5. Transaminitis most likely due to positive hepatitis C status. 6. Recovered alcoholic. 7. Recovered IV drug abuse. 8. Dehydration, resolved. 9. Elevated blood pressure. 10. Hyperglycemia.SECONDARY TO STEROIDS 11. Rule out previous diagnosis of diabetes secondary to steroids. 12. Left lung nodule. 13. mILD FLUID OVERLOAD 14 sMALL LEFT LUNG INFILTRATE PLAN: PLEASE SEE DISCHARGE INSTRUCTIONS. i HAVE PUT IN THE ANTIBIOTICS THAT DR. LAKHANI RECOMMENDS. HE WILL NEED TO SEE A STEEL BUFFER FOR HIS HEPATITIS C. HE WILL NEED A REPEAT CT TO CHECK THE PNEUMONIA AND THE LUNG NODULE. HE WILL GO HOME ON INHALERS. HE SHOULD NEVER SMOKE AGAIN. HE SHOULD CONTINUE WITH THE NICOTINE PATCH AND START A WALKING PROGRAM. HE WILL GET A SMALL DOSE OF LASIX. WILL MOST LIKELY NEED SOME BP MEDS AT DISCHARGE AND SOLUMEDROL TAPERED DOWN TO THE POINT HE DOESN;T NEED PREDNISONE. THONY ATWOOD DO Mar 28, 2017 16:02
[2017-03-28] MEDS: hydrOXYzine HCL 25 MG TABLET PO PRN (20:12)
[2017-03-29] MEDS: VANCOMYCIN 1.25 GM in IV NORMAL SALINE 250ML 250 ML IV SCH (04:20)
[2017-03-29 05:00] VITALS: BP 160/92
[2017-03-29] MEDS: hydrALAZINE 25 MG TABLET PO PRN (05:01)
[2017-03-29] MEDS: PIPERACILLIN/TAZOBACTAM 3.375 GM in IV NORMAL SALINE 50ML 50 ML IV SCH (05:53)
[2017-03-29] MEDS: INSULIN ASPART 300 UNITS/3 ML INSULN.PEN SQ SCH ×2 (07:30→11:30)
[2017-03-29] MEDS ORDERED: methylPREDNISolone SOD SUCC PF 40 MG/ML VIAL. IV SCH (08:00)
[2017-03-29] MEDS: ENOXAPARIN 40 MG/0.4 ML DISP.SYRIN. SQ SCH (08:33)
[2017-03-29] MEDS: ASCORBIC ACID 500 MG TABLET PO SCH (08:33)
[2017-03-29] MEDS: NICOTINE 14MG PATCH. TD SCH (08:33)
[2017-03-29] MEDS: amLODIPine BESYLATE 10 MG TABLET PO SCH (08:34)
[2017-03-29] MEDS: CETIRIZINE HCL 10 MG TABLET PO SCH (08:34)
[2017-03-29] MEDS: guaiFENesin DM 600/30MG 1 TAB TAB.ER.12H PO SCH (08:34)
[2017-03-29] MEDS: IPRATRPIUM/ALBUTEROL 0.5/2.5MG 3 ML NEBU. NEB SCH (08:37)
[2017-03-29 10:09] VITALS: BP 150/75
[2017-03-29] MEDS ORDERED: Nicotine 14MG TD (10:39)
[2017-03-29] MEDS ORDERED: AMLO10TA2 PO (10:39)
[2017-03-29] MEDS ORDERED: CLON1PAT TD (10:39)
--- NOTE | 2017-04-01 11:10 | PDOC3 ---
Discharge Summary Visit Information Date of Admission: Mar 23, 2017 Date of Discharge: Mar 29, 2017 Final Diagnosis 1. Right upper and middle lobe pneumonia. 2. Sepsis secondary to pneumonia. 3. Acute hypoxic respiratory failure secondary to pneumonia. 4. Tobacco use disorder. 5. Transaminitis most likely due to positive hepatitis C status. 6. Recovered alcoholic. 7. Recovered IV drug abuse. 8. Dehydration, resolved. 9. Elevated blood pressure. 10. Hyperglycemia.SECONDARY TO STEROIDS 11. Rule out previous diagnosis of diabetes secondary to steroids. 12. Left lung nodule. Problems: Brief Hospital Course Allergies Allergies Coded Allergies Type Severity Reaction Last Updated Verified No Known Drug Allergies 03/23/17 No Vital Signs Vital Signs Date Time Temp Pulse Resp B/P (MAP) Pulse Ox O2 Delivery O2 Flow Rate FiO2 03/29/17 10:09 98.4 87 20 150/75 (100) 91 Room Air 03/28/17 02:00 1.0 Brief Hospital Course Mr. Bolaños is a 61 old male who presented with a six day history of cough, fever, shortness of breath, weakness. Admitted with severe pneumonia. Treated with oxygen , IV antibiotics, steroids. Slowly got better. Hepatitis C positive, new diagnosis. Discussed his case with DR. Scott, pulnmonologist. Muriel the day of discharge was doing much better, off oxygen. Discharge Information Condition at Discharge: Improved, Stable Disposition/Orders: D/C to Home Dischare Medications Current Medications Albuterol/ Ipratropium (Duoneb) 3 ml TID NEB Last administered on 03/28/17 10: 52; Start 03/23/17 at 12:00; Stop 03/28/17 at 11:25; Status DC Guaifenesin (MUCINEX ER with DM) 1 tab BID PO Last administered on 03/29/17 08 :34; Start 03/23/17 at 12:00; Stop 03/29/17 at 12:20; Status DC Sodium Chloride 1,000 ml @ 125 mls/hr Q8H IV Last administered on 03/26/17 05: 33; Start 03/23/17 at 12:15; Stop 03/26/17 at 12:15; Status DC Acetaminophen (Tylenol) 650 mg PRN Q6HRS PRN PO PAIN / TEMP Last administered on 03/24/17 05:27; Start 03/23/17 at 12:15; Stop 03/24/17 at 11:39; Status DC Nicotine (Nicoderm Cq 14mg) 1 patch DAILY TD Last administered on 03/29/17 08: 33; Start 03/23/17 at 13:00; Stop 03/29/17 at 12:20; Status DC Azithromycin (Zithromax) 500 mg DAILY PO Last administered on 03/23/17 13:15; Start 03/23/17 at 13:00; Stop 03/24/17 at 08:35; Status DC Ceftriaxone Sodium 1 gm/ Sodium Chloride 50 ml @ 100 mls/hr Q24H IV Last administered on 03/24/17 12:06; Start 03/23/17 at 13:00; Stop 03/25/17 at 09:20; Status DC Ceftriaxone Sodium 1 gm/ Sodium Chloride 50 ml @ 100 mls/hr Q24H IV ; Start 03/24/17 at 11:00; Stop 03/24/17 at 11:00; Status DC Albuterol Sulfate (Ventolin Hfa) 1 puff PRN Q6HRS PRN IH FOR ASTHMA; Start 03/23 at 14:15; Stop 03/23/17 at 14:18; Status DC Cetirizine HCl (ZyrTEC) 10 mg DAILY PO Last administered on 03/29/17 08:34; Start 03/24/17 at 09:00; Stop 03/29/17 at 12:20; Status DC Hydroxyzine HCl (Atarax) 25 mg PRN TID PRN PO ITCHING Last administered on 03/28 20:12; Start 03/23/17 at 14:15; Stop 03/29/17 at 12:20; Status DC Ibuprofen (Motrin) 800 mg PRN TID PRN PO PAIN Last administered on 03/24/17 22: 01; Start 03/23/17 at 14:15; Stop 03/28/17 at 11:25; Status DC Atorvastatin Calcium (Lipitor) 20 mg QHS PO ; Start 03/23/17 at 21:00; Stop at 21:00; Status DC Albuterol Sulfate (Ventolin) 2.5 mg PRN Q6HRS PRN NEB SHORTNESS OF BREATH Last administered on 03/28/17 01:58; Start 03/23/17 at 14:30; Stop 03/29/17 at 12:20 ; Status DC Sodium Chloride 500 ml @ 0 mls/hr 1X ONCE IV Last administered on 03/23/17 16: 01; Start 03/23/17 at 15:00; Stop 03/23/17 at 15:01; Status DC Levofloxacin/ Dextrose 150 ml @ 150 mls/hr Q24H IV Last administered on 11:25; Start 03/24/17 at 09:00; Stop 03/25/17 at 15:15; Status DC Iohexol (Omnipaque 300 Mg/ml) 75 ml 1X ONCE IV ; Start 03/24/17 at 10:30; Stop 03/24/17 at 10:31; Status DC Clonidine HCl (Catapres) 0.1 mg PRN Q1HR PRN PO HYPERTENSION, SEE COMMENTS Last administered on 03/27/17 15:44; Start 03/24/17 at 12:30; Stop 03/29/17 at 12 :20; Status DC Enoxaparin Sodium (Lovenox) 40 mg DAILY SQ Last administered on 03/29/17 08:33 ; Start 03/24/17 at 12:45; Stop 03/29/17 at 12:20; Status DC Methylprednisolone Sodium Succinate (SOLU-Medrol 125MG VIAL) 125 mg Q8HRS IV Last administered on 03/26/17 12:20; Start 03/25/17 at 08:00; Stop 03/26/17 at 15: 39; Status DC Vancomycin HCl (Vanco Per Pharmacy) 1 each PRN DAILY PRN MC SEE COMMENTS Last administered on 03/28/17 05:50; Start 03/25/17 at 07:45; Stop 03/29/17 at 12:20 ; Status DC Piperacillin Sod/ Tazobactam Sod (Zosyn Per Pharmacy) 1 each PRN DAILY PRN MC SEE COMMENTS; Start 03/25/17 at 07:45; Stop 03/29/17 at 12:20; Status DC Vancomycin HCl 2 gm/Sodium Chloride 500 ml @ 250 mls/hr 1X ONCE IV Last administered on 03/25/17 09:15; Start 03/25/17 at 09:00; Stop 03/25/17 at 10:59; Status DC Ascorbic Acid (Vitamin C) 1,000 mg DAILY PO Last administered on 03/29/17 08: 33; Start 03/25/17 at 09:00; Stop 03/29/17 at 12:20; Status DC Piperacillin Sod/ Tazobactam Sod 3.375 gm/Sodium Chloride 50 ml @ 100 mls/hr Q6HRS IV Last administered on 03/29/17 05:53; Start 03/25/17 at 12:00; Stop 06/04 at 12:20; Status DC Vancomycin HCl 1 each 1X ONCE MC Last administered on 03/26/17 20:12; Start at 20:30; Stop 03/26/17 at 20:31; Status DC Vancomycin HCl 1.5 gm/Sodium Chloride 500 ml @ 250 mls/hr Q12H IV Last administered on 03/26/17 20:47; Start 03/25/17 at 21:00; Stop 03/26/17 at 21:55; Status DC Methylprednisolone Sodium Succinate (SOLU-Medrol 125MG VIAL) 60 mg BID IV Last administered on 03/27/17 08:13; Start 03/26/17 at 21:00; Stop 03/27/17 at 13:22; Status DC Clonidine HCl (Catapres) 0.1 mg 1X ONCE PO Last administered on 03/26/17 15:50 ; Start 03/26/17 at 15:50; Stop 03/26/17 at 15:51; Status DC Calcium Carbonate/ Glycine (Tums) 500 mg PRN AFTMEALHC PRN PO INDIGESTION Last administered on 03/28/17 14:02; Start 03/26/17 at 15:45; Stop 03/29/17 at 12:20 ; Status DC Vancomycin HCl 1.5 gm/Sodium Chloride 500 ml @ 250 mls/hr Q8H IV Last administered on 03/27/17 21:46; Start 03/27/17 at 05:00; Stop 03/28/17 at 05:23; Status DC Vancomycin HCl 1 each 1X ONCE MC ; Start 03/28/17 at 04:30; Stop 03/28/17 at 04 :32; Status DC Pneumococcal Polyvalent Vaccine (Pneumovax 23) 0.5 ml ONCE ONCE VAX IM Last administered on 03/29/17 11:55; Start 03/27/17 at 09:00; Stop 03/27/17 at 09:01; Status DC Pneumococcal Polyvalent Vaccine (Do NOT chart on this entry -- for MONITORING) 1 each PRN 1X PRN MC SEE COMMENTS; Start 03/27/17 at 05:15; Status Cancel Insulin Aspart (NovoLOG) 0-5 UNITS QIDACHS SQ Last administered on 03/28/17 12 :04; Start 03/27/17 at 08:11; Stop 03/29/17 at 12:20; Status DC Dextrose 12.5 gm PRN Q15MIN PRN IV SEE COMMENTS; Start 03/27/17 at 08:15; Stop 03/29/17 at 12:20; Status DC Clonidine HCl (Catapres Tts-1) 1 patch WEEKLY TD Last administered on 03/27/17 08:18; Start 03/27/17 at 09:00; Stop 03/29/17 at 12:20; Status DC Methylprednisolone Sodium Succinate (SOLU-Medrol 40MG VIAL) 30 mg DAILY08 IV ; Start 03/28/17 at 08:00; Stop 03/28/17 at 08:00; Status DC Hydralazine HCl (Apresoline) 25 mg PRN Q6HRS PRN PO HYPERTENSION, SEE COMMENTS Last administered on 03/29/17 05:01; Start 03/27/17 at 16:30; Stop 03/29/17 at 12:20; Status DC Vancomycin HCl 1.25 gm/Sodium Chloride 250 ml @ 167 mls/hr Q8H IV Last administered on 03/29/17 04:20; Start 03/28/17 at 13:00; Stop 03/29/17 at 12:20 ; Status DC Vancomycin HCl 1 each 1X ONCE MC ; Start 03/29/17 at 12:30; Stop 03/29/17 at 12 :30; Status DC Methylprednisolone Sodium Succinate (SOLU-Medrol 40MG VIAL) 20 mg DAILY08 IV Last administered on 03/28/17 08:00; Start 03/28/17 at 08:00; Stop 03/28/17 at 13:41; Status DC Amlodipine Besylate (Norvasc) 10 mg DAILY PO Last administered on 03/29/17 08: 34; Start 03/28/17 at 09:00; Stop 03/29/17 at 12:20; Status DC Furosemide (Lasix) 20 mg 1X ONCE IVP Last administered on 03/28/17 11:19; Start 03/28/17 at 11:00; Stop 03/28/17 at 11:02; Status DC Albuterol/ Ipratropium (Duoneb) 3 ml BID NEB Last administered on 03/29/17 08: 37; Start 03/28/17 at 21:00; Stop 03/29/17 at 12:20; Status DC Methylprednisolone Sodium Succinate (SOLU-Medrol 40MG VIAL) 10 mg DAILY08 IV Last administered on 03/29/17 08:34; Start 03/29/17 at 08:00; Stop 03/29/17 at 12:20; Status DC Active Scripts Active [Nicotine 14MG] 1 PATCH Patch 1 Patch TD DAILY Amlodipine Besylate 10 Mg Tablet 10 Mg PO DAILY 60 Days Clonidine Tts-1 (Clonidine) 1 Each Patch.tdwk 1 Patch TD WEEKLY 60 Days Proair Hfa Inhaler (Albuterol Sulfate) 8.5 Gm Hfa.aer.ad 1 Puff INH PRN Q6HRS PRN Zyvox (Linezolid) 600 Mg Tablet 600 Mg PO BID 10 Days Augmentin 875-125 Tablet (Amoxicillin/Potassium Clav) 1 Each Tablet 1 Tab PO BID Advair 250-50 Diskus (Fluticasone/Salmeterol) 1 Each Disk.w.dev 1 Puff IH BID Reported Ibuprofen 800 Mg Tablet 800 Mg PO TID PRN LAST DOSE GIVEN: DATE: 03/24/17 TIME: 10:00 PM NEXT DOSE DUE: DATE: TODAY TIME: IF NEEDED Crestor (Rosuvastatin Calcium) 5 Mg Tablet 1 Tab PO HS LAST DOSE GIVEN: NOT GIVEN THIS ADMISSION NEXT DOSE DUE: DATE: TODAY TIME: AT BEDTIME Cetirizine Hcl 10 Mg Tablet 1 Tab PO DAILY LAST DOSE GIVEN: DATE: TODAY TIME: AM NEXT DOSE DUE: DATE: TOMORROW TIME: AM Viagra (Sildenafil Citrate) 100 Mg Tablet 1 Tab PO PRN DAILY LAST DOSE GIVEN: HELD THIS ADMISSION NEXT DOSE DUE: DATE: TODAY TIME: IF NEEDED Hydroxyzine Hcl 25 Mg Tablet 1 Tab PO PRN TID LAST DOSE GIVEN: DATE: YESTERDAY TIME: 8:12 PM NEXT DOSE DUE: DATE: TODAY TIME: IF NEEDED Aldara (Imiquimod) 1 Each Cream.pack 1 Each TP PRN LAST DOSE GIVEN: HELD THIS ADMISSION NEXT DOSE DUE: DATE: RESTART TODAY TIME: IF NEEDED Ventolin Hfa Inhaler (Albuterol Sulfate) 18 Gm Hfa.aer.ad 1 Puff IH PRN Q6HRS PRN LAST DOSE GIVEN: DATE: YESTERDAY TIME: 02:00 AM NEXT DOSE DUE: DATE: TODAY TIME: IF NEEDED Patient Instructions Patient Instuctions PLEASE SEE DISCHARGE INSTRUCTIONS. i HAVE PUT IN THE ANTIBIOTICS THAT DR. SCOTT RECOMMENDS. HE WILL NEED TO SEE A WARPER FIXER FOR HIS HEPATITIS C. HE WILL NEED A REPEAT CT TO CHECK THE PNEUMONIA AND THE LUNG NODULE. HE WILL GO HOME ON INHALERS. HE SHOULD NEVER SMOKE AGAIN. HE SHOULD CONTINUE WITH THE NICOTINE PATCH AND START A WALKING PROGRAM. HE WILL GET A SMALL DOSE OF LASIX. WILL MOST LIKELY NEED SOME BP MEDS AT DISCHARGE AND SOLUMEDROL TAPERED DOWN TO THE POINT HE DOESN;T NEED PREDNISONE. THONY ATWOOD DO Apr 01, 2017 11:10
== END 2017-03-29 12:15 | disposition home or self-care (01) | DRG 871 ==
LOC: 1 SOUTH 11:32
PROVIDERS: ADMIT Family Medicine; ATTEND Family Medicine
DX: A41.9 Sepsis, unspecified organism (principal); J96.01 Acute respiratory failure with hypoxia; J15.9 Unspecified bacterial pneumonia; E86.0 Dehydration; E87.70 Fluid overload, unspecified; B19.20 Unspecified viral hepatitis C without hepatic coma; E78.5 Hyperlipidemia, unspecified; T38.0X5A Adverse effect of glucocorticoids and synthetic analogues, initial encounter; F17.210 Nicotine dependence, cigarettes, uncomplicated; E11.65 Type 2 diabetes mellitus with hyperglycemia; M19.90 Unspecified osteoarthritis, unspecified site; R03.0 Elevated blood-pressure reading, without diagnosis of hypertension; R91.1 Solitary pulmonary nodule; Z80.1 Family history of malignant neoplasm of trachea, bronchus and lung; Z82.49 Family history of ischemic heart disease and other diseases of the circulatory system; Y92.89 Other specified places as the place of occurrence of the external cause
CPT/HCPCS: 36415; 71020; 71260; 76700; 80053; 80074; 80202; 81001; 82947; 82977; 83036; 83605; 83735; 85007; 85025; 87040; 87070; 87205; 87449; 90732; 94640; 94760; 99406; G0238; J0456; J0696; J1650; J1815; J1956; J2543; J2920; J2930; J3370; J7040; J7050; J7613; J7620; 97110; 97530; J7030

== ENCOUNTER → 2017-03-23 | Outpatient (CLI) | payer BC ==
[~2017-03-23] MED LIST: ALBU18HF IH; ALBU8.5H8 INH; AMLO10TA2 PO; AMOX1TAB61 PO; CETI10TA16 PO; CLON1PAT TD; CRESTOR5 MG PO; FLUT1DIS3 IH; HYDR25TA PO; IBUP800T19 PO; IMIQ1CRE17 TP; LINE600T PO; Nicotine 14MG TD; SILD100T PO
--- NOTE | 2017-03-23 12:31 | RAD ---
Chest, 2 views, 03/23/2017: History: Fever, cough No previous chest radiographs are available at this time for comparison purposes. The heart size and pulmonary vascularity are normal. There is moderate right upper lobe infiltrate obscuring the superior aspect of the right hilum. There is minimal linear atelectasis or scarring in the left base. No pleural fluid is seen. There are mild scattered spurs in the spine. IMPRESSION: Moderate right upper lobe infiltrate compatible with pneumonia. Follow-up imaging after treatment is suggested to exclude an underlying neoplasm.
== END | disposition home or self-care (01) ==
LOC: DXRADRC 10:27
PROVIDERS: ATTEND Physician Assistant
DX: J98.11 Atelectasis (principal); J98.4 Other disorders of lung; R50.9 Fever, unspecified; R91.8 Other nonspecific abnormal finding of lung field; R05 Cough
CPT/HCPCS: 71020

== ENCOUNTER → 2017-07-15 | Outpatient (CLI) | payer BC ==
--- NOTE | 2017-07-15 10:54 | RAD ---
Chest, 2 views, 07/15/2017: History: Cough Comparison is made to a study from 03/28/2017. The heart size and pulmonary vascularity are normal. Previously seen pulmonary infiltrates have cleared. There is no evidence of pleural fluid. Moderate scattered spurs are present in the spine. IMPRESSION: No acute cardiopulmonary abnormality is detected.
== END | disposition home or self-care (01) ==
LOC: PMG 10:06
PROVIDERS: ATTEND Physician Assistant
DX: R05 Cough (principal); E11.65 Type 2 diabetes mellitus with hyperglycemia; F17.210 Nicotine dependence, cigarettes, uncomplicated
CPT/HCPCS: 71020

== ENCOUNTER → 2017-10-27 | Outpatient (CLI) | payer BC ==
--- NOTE | 2017-10-27 13:53 | RAD ---
CT of the chest without contrast 10/27/2017 Indication: Follow-up left upper lobe pulmonary nodule Comparison study: CT of the chest with contrast March 24, 2017. Technique: Multidetector CT imaging of the chest was performed without the administration of IV contrast. Findings: Heart size is normal. No pericardial effusion is identified. No pathologically enlarged mediastinal adenopathy is identified. There is no pneumothorax or pleural effusion. Small apical subpleural blebs noted. There is a 1.0 cm noncalcified nodule in the right upper lobe which was measured at 90 similar fashion is unchanged from comparison study. Smaller subpleural nodules noted inferior to this measuring 2 to 3 mm in diameter (axial image 38) mild lingular scarring is unchanged. There is a 4 mm nodule in the left lower lobe (axial image 49). This appears to be similar to comparison study. Measuring comparable fashion the previously seen dense consolidation in the right upper lobe has essentially completely resolved in the interim. Calcified granuloma noted in the right lower lobe. Limited visualization of the upper abdomen demonstrates thickening of the bilateral adrenal glands. The appearance is grossly unchanged. An acute abnormality in the upper abdomen is not identified. No evidence of acute osseous abnormality is seen. Impression: 1. Stable 1.0 cm nodule, left upper lobe. Stable 2 to 3 mm subpleural nodule in the left upper lobe and 4 mm nodule in the left lower lobe. Recommend continued evaluation per Fleischner Society guidelines. 2. Resolution of right upper lobe pneumonia. Fleischner society pulmonary nodule recommendations 2017 guidelines Solid nodules Solitary nodule size: <6 mm low risk patients: no follow-up needed high risk patients: optional CT at 12 months Solitary nodule size: 6-8 mm low risk patients: follow-up at 6-12 months, then consider further follow-up at 18-24 months high risk patients: initial follow-up CT at 6-12 months and then at 18-24 months if no change Solitary nodule size: >8 mm either low or high risk patients consider follow-up CT at 3 months, and/or CT-PET, and/or biopsy Multiple nodules size: <6 mm low risk patients: no routine follow-up high risk patients: optional CT at 12 months Multiple nodules size: 6-8 mm low risk patients: follow-up at 3-6 months, then consider further follow-up at 18-24 months high risk patients: follow-up at 3-6 months, then at 18-24 months if no change Multiple nodules size: >8 mm low risk patients: follow-up at 3-6 months, then consider further follow-up at 18-24 months high risk patients: follow-up at 3-6 months, then at 18-24 months if no change Note: newly detected indeterminate nodule in persons 35 years of age or older. Low risk patients: minimal or absent history of smoking and or other known risk factors high risk patients: history of smoking or of other known risk factors (e.g. first degree relative with lung cancer, or exposure to asbestos, radon, uranium) nodule up to 8 mm is partly solid or is ground glass further follow-up is required after 24 months to exclude possible slow growing adenocarcinoma (VEENA)
== END | disposition home or self-care (01) ==
LOC: CT 12:53
PROVIDERS: ATTEND Physician Assistant
DX: J84.10 Pulmonary fibrosis, unspecified (principal); E11.65 Type 2 diabetes mellitus with hyperglycemia; E78.5 Hyperlipidemia, unspecified; R91.8 Other nonspecific abnormal finding of lung field; Z87.891 Personal history of nicotine dependence
CPT/HCPCS: 71250

== ENCOUNTER → 2017-11-03 | Outpatient (CLI) | payer BC ==
--- NOTE | 2017-11-04 08:49 | RAD ---
Indication: Low back pain and bilateral knee pain. Technique: 2 views of each knee are submitted for review. No comparison is available. Findings: There is no fracture or dislocation. There is no joint effusion. Overlying bandaging limits evaluation of fine bony detail. On the left, there is minimal medial and patellofemoral spurring. On the right, there is minimal patellofemoral spurring. Impression: Minimal degenerative changes in the knees.
--- NOTE | 2017-11-04 08:54 | RAD ---
Indication: Low back and bilateral knee pain. Technique: 3 views of the lumbosacral spine are submitted for review. No comparison is available. Findings: There appears to be transitional anatomy, will be considered L6. There is no fracture or dislocation. Vertebral body height is maintained. There is endplate spurring throughout, most notable at L3-L4 on the left. There is facet hypertrophy which is greatest at L4-L5, L5-L6, and L6-S1. There is atheromatous disease in the abdominal aorta. Impression: Degenerative changes in the lumbar spine. Please note patient appears to have transitional anatomy.
== END | disposition home or self-care (01) ==
LOC: RAD 16:37
PROVIDERS: ATTEND Physician Assistant
DX: M46.06 Spinal enthesopathy, lumbar region (principal); I70.0 Atherosclerosis of aorta; M76.892 Other specified enthesopathies of left lower limb, excluding foot; M76.891 Other specified enthesopathies of right lower limb, excluding foot
CPT/HCPCS: 72100; 73560

== ENCOUNTER 2019-05-04 01:26 | Emergency (ER) | payer BC, OTHER ==
[~2019-05-04] VITALS: Ht 177.8 cm; Wt 90.7 kg
[~2019-05-04 01:26] MED LIST changes: -ALBU18HF IH; +ALBU2.5V8 IH; +ALBU2.5V8 INH; -ALBU8.5H8 INH; -AMLO10TA2 PO; +AMLO10TA8 PO; -LINE600T PO; +LINE600T12 PO
[2019-05-04] MEDS ORDERED: methylPREDNISolone SOD SUCC PF 125 MG/2 ML VIAL. IV ONE (01:45)
[2019-05-04] MEDS ORDERED: diphenhydrAMINE 50 MG/ML VIAL ONE (01:51)
[2019-05-04] MEDS ORDERED: ONDANSETRON PF 4 MG/2 ML VIAL. ONE (01:52)
[2019-05-04] MEDS ORDERED: IV NORMAL SALINE 1,000ML 1,000 ML IV ONE (02:00)
[2019-05-04] MEDS ORDERED: diphenhydrAMINE 50 MG/ML VIAL IVP ONE (02:00)
[2019-05-04] MEDS ORDERED: ONDANSETRON PF 4 MG/2 ML VIAL. IVP ONE (02:00)
--- NOTE | 2019-05-04 02:03 | PHYS DOC ---
Adult General Chief Complaint Chief Complaint: angioedema HPI HPI 63-year-old male presents with swollen tongue. The patient woke up to urinate around midnight and felt like his tongue felt weird. He looked in the mirror discovered the left side of his tongue was significantly swollen. Since that time, the patient has had some increasing difficulty swallowing. He has had no difficulty breathing. He does feel like it's a bit worse since he woke up. He's had angioedema one time in the past due to a hypertensive and medicine. He does not remember if it was lisinopril or not. He is not taking this medication anymore. He denies any new medications, new foods, or any other new exposures in the last day or 2. He has no other known allergies. Denies fever or chills. The patient took 50 mg of Benadryl by mouth prior to arrival. Review of Systems Review of Systems Constitutional: Denies fever or chills [] Eyes: Denies change in visual acuity, redness, or eye pain [] HENT: Swollen tongue, difficulty swallowing[] Respiratory: Denies cough or shortness of breath [] Cardiovascular: No additional information not addressed in HPI [] GI: Denies abdominal pain, nausea, vomiting, bloody stools or diarrhea [] : Denies dysuria or hematuria [] Musculoskeletal: Denies back pain or joint pain [] Integument: Denies rash or skin lesions [] Neurologic: Denies headache, focal weakness or sensory changes [] Endocrine: Denies polyuria or polydipsia [] All other systems were reviewed and found to be within normal limits, except as documented in this note. Current Medications Current Medications Current Medications Medications (Trade) Dose Ordered Sig/Naomy Start Time Stop Time Status Last Admin Dose Admin Methylprednisolone Sodium Succinate (SOLU-Medrol 125MG VIAL) 125 mg 1X ONCE 05/04/19 01:45 05/04/19 01:46 UNV Allergies Allergies Allergies Coded Allergies Type Severity Reaction Last Updated Verified No Known Drug Allergies 03/23/17 No Physical Exam Physical Exam Constitutional: Well developed, well nourished, no acute distress, non-toxic appearance. [] HENT: Normocephalic, atraumatic, bilateral external ears normal, significantly swollen left side of tongue, soft palate edema, nose normal. [] Eyes: PERRLA, EOMI, conjunctiva normal, no discharge. [] Neck: Normal range of motion, no tenderness, supple, no stridor. [] Cardiovascular:Heart rate regular rhythm, no murmur [] Lungs & Thorax: Bilateral breath sounds clear to auscultation [] Abdomen: Bowel sounds normal, soft, no tenderness, no masses, no pulsatile masses. [] Skin: Warm, dry, no erythema, no rash. [] Back: No tenderness, no CVA tenderness. [] Extremities: No tenderness, no cyanosis, no clubbing, ROM intact, no edema. [] Neurologic: Alert and oriented X 3, normal motor function, normal sensory function, no focal deficits noted. [] Psychologic: Affect normal, judgement normal, mood normal. [] EKG EKG [] Radiology/Procedures Radiology/Procedures [] Course & Med Decision Making Course & Med Decision Making Pertinent Labs and Imaging studies reviewed. (See chart for details) I immediately ordered 1 L normal saline, 125 mg of Solu-Medrol, 4 mg of Zofran. The patient's blood pressures 157/82. O2 sats 95%. Based on my exam and the fact that the patient feels like it's gotten worse since he woke up, I don't want to wait on epinephrine in case he gets worse. We will give 0.3 of epinephrine IM. After further discussion with the patient, it turns out he is on a combination medication of amlodipine and benazepril. He has previously had angioedema reaction to Losartan, or that is what was assumed at that time. He was also on amlodipine for that episode. His last episode had cheek and lip swelling. The patient has been given 3 rounds of epinephrine, 0.3 mg, 0.5 mg, 0.5 mg. This does not seem to be improving at this time. The patient feels like there is a little more room in his throat and continues to have no difficulty breathing, but his tongue and pharynx are still swollen. We do not have specialized medications for this such as tranexamic acid or icatibant. I spoke with the patient about the need to transfer him to another facility and he is in agreement with this. I spoke with the hospitalist, Dr. Josue and he has accepted the patient for transfer and admission to [facility]. The patient will go by ambulance. 38 minutes of critical care time was spent on this patient exclusive of other billable procedures. [] Dragon Disclaimer Dragon Disclaimer This electronic medical record was generated, in whole or in part, using a voice recognition dictation system. Departure Departure: Impression: Primary Impression: Angioedema Disposition: [facility]FER [facility] Admitting Physician: Yasmany Josue Condition: GUARDED Referrals: SCHUYLER RICHMOND (PCP) Problem Qualifiers Primary Impression: Angioedema Encounter type: initial encounter Qualified Codes: T78.3XXA - Angioneurotic edema, initial encounter NIKHIL GUEVARA DO May 04, 2019 02:03
[2019-05-04 02:20] LABS: BASO # 0.1 x10^3/uL (0.0-0.2); BASO % 1 % (0-3); EOS # 0.4 x10^3/uL (0.0-0.7); EOS % 3 % (0-3); HEMATOCRIT 45.1 % (39.0-53.0); HEMOGLOBIN 14.8 g/dL (13.0-17.5); LYMPH % 30 % (24-48); MEAN CORPUSCULAR HEMOGLOBIN 28 pg (25-35); MEAN CORPUSCULAR HGB CONC 33 g/dL (31-37); MEAN CORPUSCULAR VOLUME 86 fL (79-100); MONO # 1.4 x10^3/uL (0.0-1.1); MONO % 10 % (0-9); NEUT # 7.4 x10^3uL (1.8-7.7); NEUT % 55 % (31-73); PLATELET COUNT 240 x10^3/uL (140-400); RED BLOOD COUNT 5.24 x10^6/uL (4.30-5.70); RED CELL DISTRIBUTION WIDTH 14.9 % (11.5-14.5); WHITE BLOOD COUNT 13.3 x10^3/uL (4.0-11.0)
[2019-05-04 03:01] LABS: ALBUMIN 3.5 g/dL (3.4-5.0); ALBUMIN/GLOBULIN RATIO 0.9 (1.0-1.7); TOTAL BILIRUBIN 0.3 mg/dL (0.2-1.0); TOTAL PROTEIN 7.5 g/dL (6.4-8.2)
[2019-05-04 04:38] VITALS: BP 138/74
== END 2019-05-04 04:57 | disposition short-term general hospital (02) ==
LOC: ER 01:26
DX: T78.3XXA Angioneurotic edema, initial encounter (principal)
CPT/HCPCS: 36415; 80053; 85025; 96372; 96374; 96375; 99291; J0171; J1200; J2405; J2930; J7030

== ENCOUNTER → 2020-01-11 | Outpatient (CLI) | payer OTHER ==
--- NOTE | 2020-01-11 17:08 | RAD ---
CT CHEST WO CONTRAST Indication: Pulmonary nodule Technique: Noncontrast CT imaging was performed of the chest, multiplanar reconstruction images submitted. One or more of the following individualized dose reduction techniques were utilized for this examination: 1. Automated exposure control 2. Adjustment of the mA and/or kV according to patient size 3. Use of iterative reconstruction technique. Comparison: October 27, 2017 Findings: There is new focus of more infiltrative appearing density of the lingula such as seen image 203 series 2, measures on the order of 4.5 cm AP by 2.4 cm transverse. Left upper lobe nodule about 1 cm in size image 111 series 2 is similar in size and morphology. 0.3 cm subpleural left upper lobe nodule image 143 series 2 is similar. 0.4 cm left lower lobe nodule image 151 series 2 is stable. 0.6 cm subpleural left lower lobe nodule image 160 series 2 is stable. There is again emphysema near the apices greater on the right. There is no pericardial or pleural fluid or pneumothorax. There is fullness of the adrenal glands bilaterally unchanged. There is mild coronary calcification. Thoracic aortic caliber is similar, some scattered plaque present. No new significantly enlarged nodes are identified of the chest. IMPRESSION: 1. There is new focus of somewhat infiltrative appearing density of the lingula. Other previously seen nodules are unchanged including dominant left upper lobe nodule about 1 cm. Short-term follow-up such as in 3 months is recommended as per revised Fleischner guidelines. Electronically signed by: Srikanth Bee MD (01/11/2020 5:05 PM) [id number]
== END ==
LOC: CT 16:39
PROVIDERS: ATTEND Physician Assistant
DX: R91.1 Solitary pulmonary nodule (principal); J98.4 Other disorders of lung
CPT/HCPCS: 71250

== ENCOUNTER → 2020-05-01 | Outpatient (CLI) | payer OTHER ==
[~2020-05-01] MED LIST changes: +AMLO-187 PO; -AMLO10TA8 PO
--- NOTE | 2020-05-01 17:25 | RAD ---
CT CHEST WO CONTRAST Indication: Lung nodule Technique: Noncontrast CT imaging was performed of the chest, multiplanar reconstruction images submitted. One or more of the following individualized dose reduction techniques were utilized for this examination: 1. Automated exposure control 2. Adjustment of the mA and/or kV according to patient size 3. Use of iterative reconstruction technique. Comparison: January 11, 2020; October 27, 2017 Findings: There is persistent focus of infiltrative density of the lingula, fairly similar compared the recent exam although again new since 2018 exam. This measures about 2.7 cm AP by 2.6 cm transverse by 1.6 cm CC. Noncalcified left upper lobe nodule image 123 series 2 about 1 cm is stable dating back to older exam. There is some increased likely atelectasis of the lower lobes bilaterally, left greater than right. 0.5 to 0.6 cm subpleural left lower lobe nodule image 162 series 2 is similar compared with older exam. There is mild atelectasis of the medial right middle lobe. There is paraseptal emphysema near the right apex. There is no new infiltrate, pleural or pericardial fluid, or pneumothorax. There is again mild coronary calcification. Thoracic aortic caliber is similar, maximal tubular ascending thoracic aorta about 3.6 cm. No new significant chest lymphadenopathy is identified. There is similar fullness of the lateral adrenal glands. There is mild distention of esophagus, some fluid present. IMPRESSION: 1. There is persistent focus of infiltrative appearing density of the lingula similar comparing with recent exam, although again new since 2018 exam. Either attention on short-term follow-up again in such as in 3 months or PET/CT is recommended. Other left upper lobe nodule is similar. No new suspicious pulmonary nodularity is identified. 2. There is mild coronary calcification. 3. There is stable slightly ectatic ascending thoracic aorta. There is mild coronary calcification. Electronically signed by: Srikanth Bee MD (05/01/2020 5:22 PM) [facility]
== END ==
LOC: CT 16:44
PROVIDERS: ATTEND Physician Assistant
DX: J43.9 Emphysema, unspecified (principal); R91.1 Solitary pulmonary nodule; J98.4 Other disorders of lung; I25.10 Atherosclerotic heart disease of native coronary artery without angina pectoris
CPT/HCPCS: 71250

== ENCOUNTER → 2021-09-01 | Outpatient (CLI) | payer OTHER ==
--- NOTE | 2021-09-01 09:35 | RAD ---
EXAM: Right knee, 2 views. HISTORY: Pain. COMPARISON: 11/03/2017 FINDINGS: 2 views of the right knee are obtained. There is no acute fracture, dislocation or subluxat ion. There is a small benign osseous excrescence or ossification along the superior aspect of the med ial femoral condyle, possibly due to prior medial collateral ligament injury. There is minimal patell ofemoral compartment spurring. There is no joint effusion. IMPRESSION: 1. Minimal patellofemoral compartment osteoarthritis. 2. Small osseous excrescence or ossification along the lateral femoral condyle, likely due to remote medial collateral ligament injury. Electronically signed by: Caron Dempsey MD (09/01/2021 9:32 AM) [id number]
--- NOTE | 2021-09-01 09:40 | RAD ---
EXAM: Lumbar spine, 4 views. HISTORY: Pain. COMPARISON: None. FINDINGS: 4 views of the lumbar spine are obtained. There are hypoplastic T12 ribs or 6 nonrib-bearin g vertebral segments. For the purposes of this dictation, the last segment is considered L6. There is mild lumbar dextrocurvature. There is no significant listhesis. There is multilevel endplate remodel ing and facet arthropathy. There is no acute fracture. There is aortobiiliac atherosclerosis. IMPRESSION: Multiple level degenerative change, described above. No acute osseous finding. Electronically signed by: Caron Dempsey MD (09/01/2021 9:37 AM) [id number]
--- NOTE | 2021-09-01 09:41 | RAD ---
EXAM: Right hand, 2 views. HISTORY: Pain. COMPARISON: None. FINDINGS: 2 views the right hand are obtained. There is increased density and deformity of the tuft o f the third distal phalanx, the appearance of which favors prior slight bone and overlying soft tissu e amputation. This is chronic in appearance. There is no acute fracture, dislocation or subluxation. There is no radiodense foreign body. IMPRESSION: 1. 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 2. No acute osseous finding. Electronically signed by: Caron Dempsey MD (09/01/2021 9:39 AM) [id number]
== END ==
LOC: RAD 08:45
PROVIDERS: ATTEND Anesthesiology Pain Medicine
DX: Z02.71 Encounter for disability determination (principal); M47.816 Spondylosis without myelopathy or radiculopathy, lumbar region; M48.8X6 Other specified spondylopathies, lumbar region; M43.8X6 Other specified deforming dorsopathies, lumbar region; M17.11 Unilateral primary osteoarthritis, right knee; M79.641 Pain in right hand; M85.841 Other specified disorders of bone density and structure, right hand
CPT/HCPCS: 72100; 73120; 73560